=== PATIENT | male | born 1945 | race Caucasian/White ===

== ENCOUNTER → 2017-10-21 | Outpatient (CLI) | payer OTHER, MEDICARE ==
[~2017-10-21] MED LIST: ACET-1138 PO; ATOR-22 PO; BISA-16 PO; CLIN1GEL TOP; LVNIS40 SQ; MINO50CA3 PO; MRLP17 PO; MTR800 PO; RXC5 PO; SENN8.6T7 PO; ULT50X PO
--- NOTE | 2017-10-21 09:42 | DIAGNOSTIC IMAGING REPORT ---
CHEST 2 VIEWS ROUTINE CLINICAL HISTORY: S22.39XA Rib [id number] trauma. Pain. COMPARISON STUDY: 09/30/2017 FINDINGS: Left-sided rib fractures are again noted. No evidence for pneumothorax. Mild persistent parenchymal prominence left lung base. Right lung is clear. IMPRESSION: 1. Several left-sided rib fractures with no evidence pneumothorax. 2. Parenchymal interstitial prominence left base possibly representing a resolving atelectatic change The above report was generated using voice recognition software. It may contain grammatical, syntax or spelling errors. Electronically signed by: Rigoberto Daugherty M.D. 10/21/2017 9:41 AM Dictated Date/Time: 10/21/2017 9:39 AM
== END | disposition home or self-care (01) ==
LOC: C.RAD 09:12
PROVIDERS: ATTEND Surgery
DX: S22.42XA Multiple fractures of ribs, left side, initial encounter for closed fracture (principal); X58.XXXA Exposure to other specified factors, initial encounter

== ENCOUNTER 2021-04-09 22:34 | Observation (INO) ==
--- NOTE | 2021-04-09 23:27 | Emergency Department Note ---
Impression & Plan Chest pain Evaluation by the [facility] ED Provider Note NAME: ABBI BARONE AGE: 76 SEX: M ARRIVES VIA: Ambulance INFORMANT: Patient and his ED PROVIDER(S): Yoko Jean-Baptiste DO CHIEF COMPLAINT: Chest pain PLAN: Disposition: Evaluation by the [facility] Condition: Good MEDICAL DECISION MAKING: This is a 76-year-old male patient with history of Parkinson's disease who presents to the emergency department with intermittent episodes of chest pain over the past 48 hours. The chest discomfort seems to be exertional related. EKG was unremarkable. Patient had a severe episode while here in the ER and the EKG was repeated and was unchanged. Troponin was normal. Patient received IV morphine while here in the emergency department which relieved his discomfort. Patient has never had pain like this in the past. The patient has no cardiac history. I discussed the case with the [facility] and they will evaluate for further management. Triage Nursing notes reviewed and agree with them. Additional history obtained from the patient's is at the bedside Prior medical records reviewed Vital Signs: reviewed and unremarkable Differential diagnosis: Cardiac ischemia, STEMI, NSTEMI, costochondritis, ED, aortic dissection ER treatment provided: IV morphine IV Zofran Diagnostics interpreted by me: ECG: Normal sinus rhythm at a rate of 65 with first-degree AV block. There is no ST segment elevation or signs of ischemia. There is no ectopy. Repeat EKG(patient was having active chest discomfort) normal sinus rhythm at a rate of 64 with first-degree AV block. No ST segment elevation or ectopy Cardiac Monitoring: Normal sinus rhythm at a rate of 62 Laboratory studies: See below Imaging studies: As per my interpretation Chest x-ray: Patient is slightly rotated on exam. There is no obvious pulmonary pathology. Mediastinum is narrow. HPI: 76/M arrives for evaluation of chest pain. The patient first noticed some discomfort in his substernal yesterday around 6 PM when he was using a snowblower and developed substernal chest discomfort. He rated the pain is extremely uncomfortable. He had to stop what he was doing and sit down and the pain began to subside. Since then, he has had intermittent episodes of the same discomfort that was severe with exertion and at rest. The patient took some Motrin and Tylenol tonight which may or may not have helped the discomfort. ROS: See above HPI for pertinent positives & negatives. A total of 10 systems reviewed and were otherwise negative. PAST MEDICAL HISTORY:Parkinson's disease, hyperlipidemia, rosacea PAST SURGICAL HISTORY:See Below FAMILY HISTORY:See Below SOCIAL HISTORY:Patient lives with his . HOME MEDICATIONS:See list ALLERGIES:None VITALS:See Below PHYSICAL EXAMINATION: HEENT: Head - normocephalic and atraumatic Pupils are equal, round, and reactive to light. Extraocular eye muscles are intact, and sclera are anicteric. Nose - moist nasal mucosa without discharge. Mouth - moist buccal mucosa. Oropharynx is nonerythematous and there is no tonsillar exudate or edema noted. Neck: Supple; no JVD, nuchal rigidity, cervical lymphadenopathy, or auscultated bruits. Heart: Regular rate and rhythm. There is a normal S1 and S2 with no murmurs, clicks, or gallops appreciated. Lungs: Clear to auscultation bilaterally with no wheezes, rales, or rhonchi. Abdomen: Soft, completely nontender, nondistended, with good bowel sounds. There are no palpable pulsatile masses or hepatosplenomegaly. There is no guard ing, rigidity, or rebound noted. Extremities: No evidence of cyanosis, clubbing, or edema. There are easily palpable peripheral pulses. Skin: warm and dry with good turgor and no rashes. ED COURSE: Times/Reassessments: 2310: The patient was evaluated in room C4. A complete history and physical was performed. A twelve-lead EKG was obtained as described above. An order was placed for continuous cardiac monitoring. The patient was in a normal sinus rhythm at a rate of 62. An IV lock was initiated and labs were drawn as above. The patient declined wanting anything for pain. He had a chest x-ray performed as described above. On repeat evaluation of the patient, I reviewed the results of the labs and chest x-ray but the patient complained of discomfort in his chest. A repeat EKG was performed at that time and was unchanged. The patient was given IV morphine and IV Zofran. Yoko Jean-Baptiste DO Past Med/Surg History Social History Smoking Status: Former smoker Feels Safe at Home: Yes Allergies Allergies Allergy/AdvReac Type Severity Reaction Status Date / Time No Known Allergies Allergy Verified 09/28/17 15:36 Home Meds Home Medications Medication Instructions Recorded Confirmed ATORVASTATIN (LIPITOR) 20 mg PO DAILY #0 09/27/17 CLINDAMYCIN PHOSPHATE (TOPICAL 1 applic TOPICAL DAILY #0 09/27/17 (CLEOCIN-T) MINOCYCLINE HCL 50 mg PO Q2D #0 09/27/17 Previous Rx's Medication Instructions Recorded Acetaminophen (Tylenol Extra 1,000 mg PO TID 30 Days #0 10/03/17 Strength) BISACODYL (DULCOLAX) 10 mg PO DAILY PRN 30 Days #0 10/03/17 Enoxaparin (Enoxaparin Sodium) 40 mg SUBCUT QAM 30 Days #0 10/03/17 Ibuprofen 800 mg PO Q6H PRN 30 Days #0 10/03/17 Oxycodone HCl 5 mg PO Q6H PRN 30 Days #0 10/03/17 Polyethylene (Miralax) 17 g PO Q4H PRN 30 Days #0 10/03/17 SENNOSIDES-DOCUSATE SODIUM 2 tab PO BID 30 Days #0 10/03/17 (SENOKOT S) Tramadol HCl 50 mg PO Q6H PRN 30 Days #0 10/03/17 Results & Data (ED) Vital Signs Vital Signs - 24 hr 04/09/21 22:45 04/09/21 22:51 04/09/21 23:23 Temperature 37 C Temperature Source Oral Pulse Rate 65 Pulse Rate [Left Apical] 62 62 Pulse Rhythm Regular Pulse Rhythm [Left Apical] Regular Pulse Strength Normal Pulse Strength [Left Apical] Normal Respiratory Rate 16 20 Respiratory Effort / Characteristics Non-Labored Respiratory Depth Normal Blood Pressure 157/91 H Blood Pressure [Left Arm] 133/76 Blood Pressure Mean 113 Blood Pressure Mean [Left Arm] 95 Blood Pressure Position Lying Pulse Oximetry 99 97 Oxygen Delivery Method Room Air Room Air Room Air Sepsis Recent Fever Within 48 Hours No Sepsis New/Unexplained Change in Mental Status No Sepsis Action Taken by Nursing No Action Required 04/09/21 23:24 04/10/21 00:15 04/10/21 01:58 Temperature Temperature Source Pulse Rate Pulse Rate [Left Apical] 62 59 L Pulse Rhythm Pulse Rhythm [Left Apical] Pulse Strength Pulse Strength [Left Apical] Respiratory Rate 20 20 Respiratory Effort / Characteristics Respiratory Depth Blood Pressure Blood Pressure [Left Arm] 122/72 122/82 Blood Pressure Mean Blood Pressure Mean [Left Arm] 88 95 Blood Pressure Position Pulse Oximetry 97 96 95 Oxygen Delivery Method Room Air Room Air Room Air Sepsis Recent Fever Within 48 Hours Sepsis New/Unexplained Change in Mental Status Sepsis Action Taken by Nursing 04/10/21 02:39 Temperature Temperature Source Pulse Rate Pulse Rate [Left Apical] 59 L Pulse Rhythm Pulse Rhythm [Left Apical] Pulse Strength Pulse Strength [Left Apical] Respiratory Rate 20 Respiratory Effort / Characteristics Respiratory Depth Blood Pressure Blood Pressure [Left Arm] 147/66 H Blood Pressure Mean Blood Pressure Mean [Left Arm] 93 Blood Pressure Position Pulse Oximetry 97 Oxygen Delivery Method Room Air Sepsis Recent Fever Within 48 Hours Sepsis New/Unexplained Change in Mental Status Sepsis Action Taken by Nursing Laboratory Data Result diagrams: 04/09/21 22:55 04/09/21 22:55 Lab Results 04/09/21 04/09/21 04/09/21 Range/Units 22:55 22:55 23:25 WBC 6.71 (4.8-10.8) K/uL RBC 4.64 L (4.7-6.1) M/uL Hgb 14.8 (14.0-18.0) g/dL Hct 43.4 (42-52) % MCV 93.5 (80-100) fL MCH 31.9 (25-34) pg MCHC 34.1 (32-36) g/dL RDW Std Deviation 44.5 (36.4-46.3) fL RDW Coeff of Kyler 13.0 (11.5-14.5) % Plt Count 221 (130-400) K/uL MPV 10.8 H (7.4-10.4) fL Immature Gran % (Auto) 0.0 % Neut % (Auto) 60.5 % Lymph % (Auto) 28.6 % Prowers % (Auto) 8.2 % Eos % (Auto) 2.4 % Baso % (Auto) 0.3 % Neut # (Auto) 4.06 (1.4-6.5) K/uL Lymph # (Auto) 1.92 (1.2-3.4) K/uL Prowers # (Auto) 0.55 (0.11-0.59) K/uL Eos # (Auto) 0.16 (0-0.5) K/uL Baso # (Auto) 0.02 (0-0.2) K/uL Immature Gran # (Auto) 0.00 (0.00-0.02) K/uL Sodium 141 (136-145) mmol/L Potassium 4.0 (3.5-5.1) mmol/L Chloride 108 H (98-107) mmol/L Carbon Dioxide 27 (21-32) mmol/L Anion Gap 6 (3-11) BUN 21 (6-23) mg/dl Creatinine 1.00 (0.6-1.4) mg/dl Est Cr Clr Drug Dosing 74.8 ml/min Est GFR ( Amer) 85.6 ml/min Est GFR (Non-Af Amer) 73.8 ml/min BUN/Creatinine Ratio 21.0 H (10-20) Glucose 106 H (70-99(Fasting)) mg/dl Calcium 8.8 (8.5-10.1) mg/dl Total Bilirubin 0.4 (0.2-1.0) mg/dl AST 20 (13-39) U/L ALT 18 (7-52) U/L Alkaline Phosphatase 74 (34-104) U/L Troponin I 0.04 (0-0.04) ng/ml Total Protein 6.5 (6.0-8.3) gm/dl Albumin 3.8 (3.4-5.0) gm/dl Globulin 2.7 (2.5-4.0) gm/dl Albumin/Globulin Ratio 1.4 (0.9-2) Lipase 49 (11-82) U/L SARS-CoV-2, RNA, NAAT NEGATIVE (NEGATIVE) Administered Medications Discontinued Medications Morphine Sulfate (Morphine Sulfate 4 Mg/Ml 1 Ml Carp\Vial) 4 mg IV NOW STA Stop: 04/10/21 01:37 Last Admin: 04/10/21 01:49 Dose: 4 mg Documented by: [id number] Ondansetron HCl (Ondansetron Inj 2 Mg/Ml 2 Ml Vial) 4 mg IV NOW STA Stop: 04/10/21 01:37 Last Admin: 04/10/21 01:49 Dose: 4 mg Documented by: [id number] Discharge Plan Visit Data Chief Complaint: Chest Pain Stated Complaint: CHEST PAIN ED Provider: Yoko Jean-Baptiste Discharge Problem: Chest pain Forms Stand Alone Forms: [facility] Prescriptions Prescriptions: No Action ATORVASTATIN (LIPITOR) 20 MG tablet 20 mg PO DAILY Qty: 0 RF: 0 CLINDAMYCIN PHOSPHATE (TOPICAL (CLEOCIN-T) 1 % gel 1 applic Topical DAILY Qty: 0 RF: 0 MINOCYCLINE HCL 50 MG capsule 50 mg PO Q2D Qty: 0 RF: 0 Acetaminophen (Tylenol Extra Strength) 500 MG tablet 1,000 mg PO TID 30 Days Qty: 0 RF: 0 BISACODYL (DULCOLAX) 5 MG tablet 10 mg PO DAILY PRN (Reason: Constipation) 30 Days Qty: 0 RF: 0 Enoxaparin (Enoxaparin Sodium) 40 MG/0.4 ML INJECTION 40 mg subcut QAM 30 Days Qty: 0 RF: 0 Ibuprofen 800 MG tablet 800 mg PO Q6H PRN (Reason: moderate pain) 30 Days Qty: 0 RF: 0 Oxycodone HCl 5 MG tablet 5 mg PO Q6H PRN (Reason: severe pain) 30 Days Qty: 0 RF: 0 Polyethylene (Miralax) 17 GM POW 17 g PO Q4H PRN (Reason: Constipation) 30 Days Qty: 0 RF: 0 SENNOSIDES-DOCUSATE SODIUM (SENOKOT S) 1 TAB tablet 2 tab PO BID 30 Days Qty: 0 RF: 0 Tramadol HCl 50 MG tablet 50 mg PO Q6H PRN (Reason: moderate-severe pain) 30 Days Qty: 0 RF: 0 Referrals Referrals: Boogie Ramsey MD [Primary Care Provider] - Discharge Problem: Chest pain Qualifiers: Chest pain type: precordial pain Qualified Code(s): R07.2 - Precordial pain
[2021-04-10 00:04] LABS: Basophils # (auto) 0.02 K/uL (0-0.2); Basophils % (auto) 0.3 %; Eosinophils # (auto) 0.16 K/uL (0-0.5); Eosinophils % (auto) 2.4 %; Hematocrit (blood only) 43.4 % (42-52); Hemoglobin 14.8 g/dL (14.0-18.0); Lymphocytes # (auto) 1.92 K/uL (1.2-3.4); Lymphocytes % (auto) 28.6 %; Mean Corpuscular Hemoglobin 31.9 pg (25-34); Mean Corpuscular Hgb Conc 34.1 g/dL (32-36); Mean Corpuscular Volume 93.5 fL (80-100); Mean Platelet Volume 10.8 fL (7.4-10.4); Monocytes # (auto) 0.55 K/uL (0.11-0.59); Monocytes % (auto) 8.2 %; Neutrophils # (auto) 4.06 K/uL (1.4-6.5); Neutrophils % (auto) 60.5 %; Platelet Count 221 K/uL (130-400); RDW Standard Deviation 44.5 fL (36.4-46.3); Red Blood Count 4.64 M/uL (4.7-6.1); White Blood Count 6.71 K/uL (4.8-10.8)
[2021-04-10 00:13] LABS: Albumin Globulin Ratio 1.4 (0.9-2); Albumin Level 3.8 gm/dl (3.4-5.0); Bilirubin,Total 0.4 mg/dl (0.2-1.0); Calcium 8.8 mg/dl (8.5-10.1); Creatinine Clr Calc Pharmacy 74.8 ml/min; Est GFR (African American) 85.6 ml/min; Est GFR (Non-African American) 73.8 ml/min; Globulin 2.7 gm/dl (2.5-4.0); Total Protein 6.5 gm/dl (6.0-8.3)
[2021-04-10 00:30] LABS: Troponin I 0.04 ng/ml (0-0.04)
[2021-04-10] MEDS ORDERED: ONDANSETRON INJ 2 MG/ML 2 ML VIAL IV STA (01:36)
[2021-04-10] MEDS ORDERED: MoRPHine SULFATE 4 MG/ML 1 ML CARP\\VIAL IV STA (01:36)
[2021-04-10] MEDS ORDERED: NITROGLYCERIN SL 0.4 MG/TAB TAB SL PRN (07:02)
[2021-04-10] MEDS ORDERED: ACETAMINOPHEN 325 MG TAB PO PRN ×2 (07:02→09:29)
[2021-04-10] MEDS ORDERED: ONDANSETRON INJ 2 MG/ML 2 ML VIAL IV PRN (07:02)
[2021-04-10] MEDS ORDERED: POLYETHYLENE (MIRALAX) 17 GM PACK PO PRN (07:02)
[2021-04-10 07:41] LABS: Basophils # (auto) 0.03 K/uL (0-0.2); Basophils % (auto) 0.5 %; Eosinophils # (auto) 0.16 K/uL (0-0.5); Eosinophils % (auto) 2.8 %; Hematocrit (blood only) 41.1 % (42-52); Hemoglobin 13.9 g/dL (14.0-18.0); Immature Granulocytes # (auto) 0.01 K/uL (0.00-0.02); Immature Granulocytes % (auto) 0.2 %; Lymphocytes # (auto) 2.13 K/uL (1.2-3.4); Lymphocytes % (auto) 37.8 %; Mean Corpuscular Hemoglobin 31.7 pg (25-34); Mean Corpuscular Hgb Conc 33.8 g/dL (32-36); Mean Corpuscular Volume 93.6 fL (80-100); Mean Platelet Volume 10.1 fL (7.4-10.4); Monocytes # (auto) 0.53 K/uL (0.11-0.59); Monocytes % (auto) 9.4 %; Neutrophils # (auto) 2.78 K/uL (1.4-6.5); Neutrophils % (auto) 49.3 %; Platelet Count 186 K/uL (130-400); RDW Standard Deviation 44.6 fL (36.4-46.3); Red Blood Count 4.39 M/uL (4.7-6.1); White Blood Count 5.64 K/uL (4.8-10.8)
--- NOTE | 2021-04-10 07:56 | XRay Report ---
XR chest 1V portable CLINICAL HISTORY: Atypical chest pain. COMPARISON STUDY: Chest radiograph October 21, 2017. FINDINGS: The patient is rotated. Old left rib fractures are noted. There is mild bibasilar opacities . Mild cardiomegaly is noted without evidence for pulmonary edema. There is no pneumothorax or pleura l effusion. No lobar consolidation is present. IMPRESSION: 1. Mild bibasilar opacities which favor atelectasis. An infectious process could appear similar altho ugh is considered less likely. 2. Rotated study. ACT 112: Negative or not required by law. Electronically signed by: Baltazar Voss M.D. 04/10/2021 7:54 AM
[2021-04-10 08:04] LABS: BUN Creatinine Ratio 25.3 (10-20); Calcium 7.9 mg/dl (8.5-10.1); Est GFR (African American) 98.5 ml/min; Magnesium 2.1 mg/dl (1.7-2.4); Potassium 4.1 mmol/L (3.5-5.1)
[2021-04-10 08:22] LABS: Troponin I 0.05 ng/ml (0-0.04)
--- NOTE | 2021-04-10 08:22 | Cardiology Consultation ---
Date of Consultation April 10, 2021 Assessment & Plan (1) NSTEMI (non-ST elevated myocardial infarction): (2) Parkinson disease: (3) Chest pain: Based on the patient's description of symptoms and echocardiographic findings it appears that he has suffered a LAD ischemic event over the last several days. His chest discomfort was resolved with 1 sublingual nitroglycerin in the emergency department that I ordered, will place 1 inch Nitropaste now as well. We will bolus and load with heparin Will require cardiac catheterization and I will attempt to facilitate it at this time. The procedure along with the risks, benefits and alternatives were discussed with great lengths and he is in agreement with proceeding. Further recommendations to follow. He will also receive 324 mg of aspirin if he is not already had done so. History of Present Illness Reason for Consultation: Chest pain Requesting Physician: [facility] Attending Physician: Flaquito Emanuel MD History of Present Illness It was my pleasure to see Mr. Christianson in cardiac consultation today April 10, 2021. He is a very pleasant 76-year-old gentleman who presented to [facility] emergency department earlier this a.m. with complaints of shoulder pain. He states that this is been bothering for about a week now. He describes it as pain that originates in his right shoulder and seems to radiate across his precordium to his left shoulder and down his right arm. He does not remember exactly what he was doing when it started but notes that it has progressed over the next week. He states he is very active at baseline and runs on a regular basis. Yesterday he was using a snowblower and not overly exerting himself and he became significantly fatigued and the discomfort significantly worsened. This was associate with some shortness of breath and diaphoresis. Later that evening he was unable to get comfortable and had his bring him in the emergency department. Upon arrival his initial work-up was unremarkable with no significant ischemic EKG changes and negative troponin. Currently, he is still having the discomfort but notes that is not as severe as presentation. Allergies Allergy/AdvReac Type Severity Reaction Status Date / Time No Known Allergies Allergy Verified 04/10/21 07:44 Home Medications Medication Instructions Recorded Confirmed Type atorvastatin 20 mg tablet 20 mg PO QAM 04/10/21 04/10/21 History carbidopa 25 mg-levodopa 100 mg 1 tab PO BID 04/10/21 04/10/21 History tablet carbidopa ER 25 mg-levodopa 100 mg 1 tab PO QID 04/10/21 04/10/21 History tablet,extended release minocycline 50 mg capsule 50 mg PO Q2D 04/10/21 04/10/21 History Patient History Social History Smoking Status: Former smoker Hx Alcohol Use: Yes Alcohol type: beer and hard liquor Hx Substance Use: No Preferred Language: Maltese Communication Ability: Effective Seed Specialist Required: No Beliefs That Will Affect Care: None Current Living Situation: Spouse Feels Safe at Home: Yes Safety Concerns: Feels Safe At This Time Assistive Devices: Glasses Review of Systems Review of Systems: All systems reviewed & are unremarkable except as noted in HPI & below Physical Exam Physical Exam: Physical Exam: General: Awake, alert and oriented x 3. No acute distress. HEENT: Normocephalic, atraumatic. Pupils equal, round and reactive to light and accommodation. Extraocular muscles are intact. Anicteric sclera. Moist mu cous membranes. Neck: No JVD. No bruit. Cardiovascular: Regular. No S-4. Normal S-1 and S-2. No S-3. No murmurs, rubs or gallops. Pulmonary: Clear to auscultation bilaterally. No rales, rhonchi, or wheezing. Abdomen: Bowel sounds x 4, soft. No rebound, guarding or tenderness. No organomegaly. Extremities: No clubbing, cyanosis or edema. +2 pedal pulses bilaterally. Skin: Warm and dry. Results & Data ([facility]) Vital Signs (Past 12 Hours) Vital Signs Temp Pulse Pulse Resp BP BP Pulse Ox 04/10/21 07:02 04/10/21 07:00 53 L 13 111/71 95 04/10/21 06:12 50 L 20 124/75 96 04/10/21 05:44 57 L 20 126/79 96 04/10/21 04:22 54 L 20 104/64 95 04/10/21 02:39 59 L 20 147/66 H 97 04/10/21 01:58 59 L 20 122/82 95 04/10/21 00:15 62 20 122/72 96 04/09/21 23:24 97 04/09/21 23:23 62 20 133/76 97 04/09/21 22:45 37 C 65 62 16 157/91 H 99 Pulse Ox 04/10/21 07:02 96 04/10/21 07:00 04/10/21 06:12 04/10/21 05:44 04/10/21 04:22 04/10/21 02:39 04/10/21 01:58 04/10/21 00:15 04/09/21 23:24 04/09/21 23:23 04/09/21 22:45 (1) Chest pain Chest pain type: precordial pain Qualified Code(s): R07.2 - Precordial pain
[2021-04-10] MEDS: CARBIDOPA/LEVODOPA 50/200MG EXT REL TAB PO SCH ×2 (08:24→12:19)
--- NOTE | 2021-04-10 08:37 | History and Physical Report ---
DATE OF SERVICE: 04/10/2021. CHIEF COMPLAINT: Chest pain. HISTORY OF PRESENT ILLNESS: This is a 76-year-old male with past medical history significant for rosacea, actinic keratosis, Parkinson disease, incisional hernia who presents with chest pain. The patient states this is going on for last few days. Other day it happened when he was snow blowing, but last night it happened when he was resting on a bed. Pain was radiating to his right shoulder and right upper elbow region. Today, it was very severe that he felt almost passed out, so he came to the ER. With the morphine the pain is resolved. Denies any headache. No blurred visions, no earache, no runny nose, no sore throat, no cough, no shortness of breath, no nausea, no vomiting, no abdominal pain, normal bowel and bladder movements. Ambulates okay. Lives with his . Appetite is okay. ALLERGIES: No known drug allergies. PAST MEDICAL HISTORY: As mentioned above. PAST SURGICAL HISTORY: Colonoscopy, dental surgery, incision repair, cataract surgery, knee arthroscopy, sigmoidoscopy, umbilical hernia repair. MEDICATIONS: As per [facility], the patient is on carbidopa/levodopa 25/100 mg 1 tablet p.o. b.i.d., carbidopa/levodopa ER 25/100 mg 1 tablet q.i.d., minocycline 50 mg every other day, atorvastatin 20 mg p.o. daily. FAMILY HISTORY: Significant for father had skin cancer, mother had lung cancer. SOCIAL HISTORY: . Quit smoking in 1980s, smoked 1 pack a day for 20 years. Alcohol, 1 beer a day. No drug use. REVIEW OF SYSTEMS: As per HPI. Rest of review of systems is negative. PHYSICAL EXAMINATION: GENERAL: The patient is of moderate build, not in acute distress. VITAL SIGNS: Temperature 37, pulse 54, respiratory rate 20, blood pressure 104/64, oxygen 95% on room air. HEENT: Pupils equal, round and reactive to light. Oral mucosa moist. NECK: No JVD, no neck masses. CARDIOVASCULAR: S1 and S2 heard. Regular rate and rhythm. No murmur, no gallop. RESPIRATORY SYSTEM: Normal AP diameter. No accessory muscle use. No wheezing, no crackles. ABDOMEN: Soft, bowel sounds present, nontender, no distention. CENTRAL NERVOUS SYSTEM: Cranial nerves II through XII are grossly intact, nonfocal. EXTREMITIES: No edema, no erythema. LABORATORY DATA: WBC 6.7, hemoglobin 14.8, hematocrit 43.4, platelets 221. Sodium 141, potassium 4, chloride 108, bicarbonate 27, BUN 21, creatinine 1, serum glucose 106, calcium 8.8, total bilirubin 0.4, AST 20, ALT 18, alkaline phosphatase 74. Troponin I 0.04, lipase 49. SARS-CoV-2 RNA negative. IMAGING DATA: Chest x-ray, no acute findings. EKG: Sinus rhythm with sinus arrhythmia with first-degree AV block at a rate of 64, no significant change was found. ASSESSMENT AND PLAN: This 76-year-old male presents with chest pain. 1. Chest pain: Rule out acute coronary syndrome. Initial workup is negative. The patient has pain sometimes with exertion and sometimes at rest. We will follow serial enzymes, echocardiogram. Consult Cardiology in the a.m. Monitor in med/tele.NPO until seen by cardiology 2. Parkinson disease: Continue his home medications. 3. Deep venous thrombosis prophylaxis. Sequential compression device. DISPOSITION: Monitor in med tele. PT/OT prior to discharge. Social service to help with discharge planning. Level 1 full code. Job ID: [id number] MTDD
[2021-04-10] MEDS ORDERED: ATORVASTATIN 20 MG TAB PO SCH (09:00)
[2021-04-10] MEDS ORDERED: NITROGLYCERIN 2% OINTMENT 30GM TUBE ONE (09:07)
[2021-04-10] MEDS ORDERED: ASPIRIN 81 MG CHEW PO STA (09:20)
[2021-04-10] MEDS ORDERED: Heparin IV Adult Wt-Based Standard WITH Bolus Protocol IV SCH (09:24)
[2021-04-10] MEDS ORDERED: HEPARIN 25000 UNIT/500 ML D5W IV ONE (09:27)
[2021-04-10] MEDS ORDERED: HEPARIN SOD (PORCINE) 1000 UNIT/ML ONE (09:27)
[2021-04-10] MEDS ORDERED: HEPARIN SOD (PORCINE) 1000 UNIT/ML IV ONE (09:33)
[2021-04-10] MEDS ORDERED: HEPARIN SODIUM/DEXTROSE 25,000 UNITS/500 ML BAG IV SCH (09:45)
[2021-04-10 09:56] LABS: Prothrombin Time 9.9 Seconds (9.0-12.0)
--- NOTE | 2021-04-10 11:54 | Communication Note ---
Date of Service: April 10, 2021 Patient was seen and personally examined. Full cardiology consultation previously performed. Patient presenting with chest pain, exertional dyspnea and abnormal cardiac enzyme/echocardiogram suggestive of LAD distribution ischemia Patient to be referred later today for diagnostic coronary angiography. Procedure and risks as well as risks of coronary intervention if indicated discussed in detail with patient and
--- NOTE | 2021-04-10 12:14 | Electrocardiogram Report ---
Test Reason : Blood Pressure : / mmHG Vent. Rate : 065 BPM Atrial Rate : 065 BPM P-R Int : 222 ms QRS Dur : 080 ms QT Int : 418 ms P-R-T Axes : 036 023 055 degrees QTc Int : 434 ms Sinus rhythm with 1st degree A-V block Otherwise normal ECG When compared with ECG of 28-SEP-2017 15:31, Nonspecific T wave abnormality no longer evident in Inferior leads Confirmed by Edwin Abarca ([id number]) on 04/10/2021 12:13:56 PM Referred By: REFERRED SELF Confirmed By:Emil Abarca
--- NOTE | 2021-04-10 12:15 | Electrocardiogram Report ---
Test Reason : Blood Pressure : / mmHG Vent. Rate : 064 BPM Atrial Rate : 064 BPM P-R Int : 232 ms QRS Dur : 082 ms QT Int : 422 ms P-R-T Axes : 022 010 058 degrees QTc Int : 435 ms Sinus rhythm with sinus arrhythmia with 1st degree A-V block Otherwise normal ECG When compared with ECG of 09-APR-2021 22:47, (unconfirmed) No significant change was found Confirmed by Edwin Abarca ([id number]) on 04/10/2021 12:15:31 PM Referred By: REFERRED SELF Confirmed By:Emil Abarca
[2021-04-10] MEDS ORDERED: HEPARIN (PORCINE) 1000 UNIT/ML 10 ML (CATH LAB USE ONLY) ONE (13:06)
[2021-04-10] MEDS ORDERED: MIDAZOLAM HCL 1 MG/ML 2ML VIAL ONE (13:06)
[2021-04-10] MEDS ORDERED: fentaNYL citrate 100 MCG/2 ML VIAL ONE (13:06)
[2021-04-10] MEDS ORDERED: niCARdipine HCL INJ 2.5 MG/ML 10 ML AMP ONE (13:06)
[2021-04-10] MEDS ORDERED: NITROGLYCERIN/D5W 100MCG/ML 20ML SYR ONE (13:07)
[2021-04-10] MEDS ORDERED: LIDOCAINE 1% LOCAL 20 ML VIAL ONE (13:17)
--- NOTE | 2021-04-10 14:20 | Post Anesthesia Assessment ---
Date of Service April 10, 2021 Post Sedation Assessment Vital Signs Temp Pulse Pulse Resp BP BP Pulse Ox 04/10/21 14:10 48 L 20 106/61 99 04/10/21 09:30 50 L 15 95 04/10/21 09:01 56 L 16 138/74 04/10/21 09:00 50 L 17 99 04/10/21 08:48 53 L 13 156/71 H 100 04/10/21 08:46 97 04/10/21 08:00 37 C 53 L 13 138/74 100 04/10/21 07:30 57 L 20 97 04/10/21 07:02 04/10/21 07:00 53 L 13 111/71 95 04/10/21 06:12 50 L 20 124/75 96 04/10/21 05:44 57 L 20 126/79 96 04/10/21 04:22 54 L 20 104/64 95 04/10/21 02:39 59 L 20 147/66 H 97 04/10/21 01:58 59 L 20 122/82 95 04/10/21 00:15 62 20 122/72 96 04/09/21 23:24 97 04/09/21 23:23 62 20 133/76 97 04/09/21 22:45 37 C 65 62 16 157/91 H 99 Pulse Ox 04/10/21 14:10 04/10/21 09:30 04/10/21 09:01 04/10/21 09:00 04/10/21 08:48 04/10/21 08:46 04/10/21 08:00 04/10/21 07:30 04/10/21 07:02 96 04/10/21 07:00 04/10/21 06:12 04/10/21 05:44 04/10/21 04:22 04/10/21 02:39 04/10/21 01:58 04/10/21 00:15 04/09/21 23:24 04/09/21 23:23 04/09/21 22:45 Recovery Score Activity: Moves 4 extremities Respiration: Deep Breath/Cough Circulation: +/-20% PreAnes Value Consciousness: Fully Awake Oxygen Saturation: > 92% On Room Air Post Anesthesia Score: 10 Discharge Sedation Level of Care: Phase I Post Sedation Plan On clinical assessment, the patient appears to have tolerated the sedation with out complications. Patient is recovering as anticipated. Patient will continue to be monitored by nursing and may be discharged when sedation discharge criteria are met per below protocol. Upon Completions of procedure up to 15 minutes continue every 5 minute vital signs and the P.A.R. score; then discharge to a Phase I or Fast Track to Phase II per the following guidelines: * Discharge Patient to appropriate Phase II area if PAR is 8 or greater or return to pre- procedure baseline. The post - procedure orders will be as directed. * If PAR score is less than 8 or not return to pre-procedure baseline then patient will follow Phase I monitoring till PAR is reached for Phase II. The Phase I may be done in procedure room or may call to secure a Phase I area. * If naloxone or flumazenil are used for reversal, hold in Phase I for continued monitoring from when last reversal dose was given for a minimum of 60 minutes or longer pending the nurse and/or physician discretion of patient condition before discharge to Phase II. Please call the Sedation Physician to re-evaluate and complete post-note for discharge to Phase II area. Do NOT discharge from procedure sedation or Phase 1 until post- sedation evaluation note is complete by procedure /sedation MD Sedation Discharge Instructions to be given to the patient at discharge to home.
--- NOTE | 2021-04-10 14:21 | Pre Anesthesia Assessment ---
Date of Service April 10, 2021 Pre Sedation Assessment Vital Signs Temp Pulse Pulse Resp BP BP Pulse Ox 04/10/21 14:10 48 L 20 106/61 99 04/10/21 09:30 50 L 15 95 04/10/21 09:01 56 L 16 138/74 04/10/21 09:00 50 L 17 99 04/10/21 08:48 53 L 13 156/71 H 100 04/10/21 08:46 97 04/10/21 08:00 37 C 53 L 13 138/74 100 04/10/21 07:30 57 L 20 97 04/10/21 07:02 04/10/21 07:00 53 L 13 111/71 95 04/10/21 06:12 50 L 20 124/75 96 04/10/21 05:44 57 L 20 126/79 96 04/10/21 04:22 54 L 20 104/64 95 04/10/21 02:39 59 L 20 147/66 H 97 04/10/21 01:58 59 L 20 122/82 95 04/10/21 00:15 62 20 122/72 96 04/09/21 23:24 97 04/09/21 23:23 62 20 133/76 97 04/09/21 22:45 37 C 65 62 16 157/91 H 99 Pulse Ox 04/10/21 14:10 04/10/21 09:30 04/10/21 09:01 04/10/21 09:00 04/10/21 08:48 04/10/21 08:46 04/10/21 08:00 04/10/21 07:30 04/10/21 07:02 96 04/10/21 07:00 04/10/21 06:12 04/10/21 05:44 04/10/21 04:22 04/10/21 02:39 04/10/21 01:58 04/10/21 00:15 04/09/21 23:24 04/09/21 23:23 04/09/21 22:45 Pre-Sedation Airway Assessment Smoking Status: Former smoker Notes The planned sedation has been discussed with the patient. Informed Consent was obtained. I have identified the patient, determined the appropriateness of sedation and have assessed the patient immediately prior to the procedure. All medicine(s) and interventions are by my order.
--- NOTE | 2021-04-10 14:29 | Cardiac Catheterization ---
Cardiac Cath Procedure Brief Procedure Date April 10, 2021 Pre-Procedure Diagnosis Pre-Procedure Diagnosis: Non STEMI AUC Score AUC Score: 9 Post-Procedure Diagnosis Post-Procedure Diagnosis: Severe CAD Procedure(s) Performed Procedure(s) Performed: Coronary Angiography, Left Heart Cath and Aortography Packing Inspector Vu Ty MD Estimated Blood Loss Estimated Blood Loss: <15cc Medication(s) Medication(s): Heparin (2000 units IV), Lidocaine 1% (Local infiltration access site) and Nicardipine (250 mcg intra-arterial after arterial sheath insertion) Preliminary Findings Right dominant coronary anatomy Critical left main equivalent coronary artery disease with 99% ostial left anterior descending, 90% ostial left circumflex with heavy thrombus Recommendations Recommendations: CABG Specimens Specimens: None Fluids (cc crystalloids) Fluids (cc crystalloids): 271 Anesthesia Start:13:40, stop14:03 no sedation given Procedural Complication(s) None 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
--- NOTE | 2021-04-10 17:23 | Cardiac Catheterization ---
Cardiac Cath Procedure Full Procedure Date April 10, 2021 Pre-Procedure Diagnosis Pre-Procedure Diagnosis: Non STEMI AUC Score AUC Score: 9 Post-Procedure Diagnosis Post-Procedure Diagnosis: Severe CAD Procedure(s) Performed Procedure(s) Performed: Coronary Angiography, Left Heart Cath and Aortography Yeast Pumper Vu Ty MD Estimated Blood Loss Estimated Blood Loss: <15cc Medication(s) Medication(s): Heparin (2000 units IV), Lidocaine 1% (Local infiltration access site) and Nicardipine (250 mcg intra-arterial after arterial sheath insertion) Summary of Findings Final impressions: Right dominant coronary anatomy Critical left main equivalent coronary artery disease with 99% ostial left anterior descending, 90% ostial left circumflex with heavy thrombus Procedure: Left heart catheterization, coronary angiography Vascular Access: Right radial artery without complication Catheters: Long 6 [place] glide sheath, 5 [place], 5 [place] straight pigtail, 3 DRC Coronary angiography: Right dominant anatomy Left main: Moderate length with mild to moderate calcification Left anterior descending: Type III vessel which gives rise to a tiny first diagonal a moderate size second diagonal and a moderate sized third diagonal in its midportion. There is a 99% ostial left anterior descending stenosis and diffuse disease throughout the midportion of the left anterior descending. There is ABRAHAM II flow . The origin of the moderate-sized second diagonal branches or narrowed by 90% Left circumflex: Moderately large giving rise to an obtuse marginal and two modest caliber posterior lateral branch. It is narrowed at its ostium by 90% with a thrombotic stenosis Right coronary artery: Moderately large and dominant distribution. Gives rise to 2 right ventricular branches in its proximal third, a small acute marginal branch, a small posterior descending artery and multiple posterior ventricular branches with the the third being the largest. The right coronary has diffuse luminal irregularities in its midportion of 30% or less. 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 Any exceptions are noted below. ACC Data: Mangle Operator Garments Cardiac Status Clinical evaluation leading to the procedure 3-day history of stuttering chest pain following physical exertion resulting in ER presentation mildly elevated troponin and echocardiographic findings reflective of mild hypokinesis of the anteroseptal and lateral amezcua CAD Presenation: Non STEMI and Unstable angina Anginal Classification: CCS IV Heart Failure: No Cardiogenic Shock within 24 Hours: No Cardiac Arrest within 24 Hours: No Imaging Studies Past 6 Months: Yes Stress Studies Past 6 Months: No Standard Exercise Test: No Stress Echocardiogram: No Stress Testing w/SPECT MPI: No Cardiac CTA: No STEMI OR Non-STEMI Symptom Onset Date: 04/07/21 Coronary Anatomy Dominant: Right Left Main (% Stenosis): Mid (Mild calcification) LAD (% Stenosis): Ostial (99) D1 (% Stenosis): Normal D2 (% Stenosis): Ostial (90) D3 (% Stenosis): Normal Circumflex (% Stenosis): Ostial (90% thrombotic occlusion) OM1 (% Stenosis): Normal L PL1 (% Stenosis): Normal L PL2 (% Stenosis): Normal RCA (% Stenosis): Mid (30% with diffuse luminal irregularities) R PL2 (% Stenosis): Mid (80%) Left Ventricular Angiography EF (%): N/A Diagnostic Physicians Name: Vu Ty MD Closure Device Recommendations: CABG
[2021-04-10] MEDS ORDERED: CARBIDOPA/LEVODOPA 25/100MG TAB PO SCH (20:30)
[2021-04-11] MEDS ORDERED: SODIUM CHLORIDE 0.9% 1000ML 1,000 ML IV SCH
== END 2021-04-10 15:59 | disposition short-term general hospital (02) ==
LOC: ED 22:34 → EDINP 22:34